=== PATIENT | female | born 1985 | race Caucasian/White ===

== ENCOUNTER → 2018-04-13 08:19 | Outpatient (CLI) | payer OTHER, SELFPAY ==
--- NOTE | 2018-04-13 08:23 | DI.MG.S_ITS ---
BILATERAL DIGITAL DIAGNOSTIC MAMMOGRAM 3D/2D WITH AUGMENTATION: 04/13/2018 CLINICAL: New right breast palpable abnormality. Family history of breast cancer. Patient states she had a prior palpable abnormality in the left breast which was previously evaluated at [facility] in [place], [place] on 06/06/2017, where she was told she had breast cysts. The patient states that the area is unchanged from 06/06/2017 on both her own and her provider's exam. Comparison is made to exam dated: 06/06/2017 ultrasound - [facility]. There is heterogenous fibroglandular tissue bilaterally, which limits the sensitivity of mammography. There is a triangular marker overlying the skin of the upper outer right breast at the site of the patient's reported palpable abnormality. There is no underlying mammographic abnormality. There is a triangular marker overlying the skin of the upper outer left breast at the site of the patient indicated prior palpable abnormality which was reportedly previously evaluated at [facility] in [place], [place] on 06/06/2017. Prior ultrasound report by radiologist Dr. Endy Valderrama states that the site of palpable abnormality represented a cluster of simple cysts, accounting for the palpable abnormality. The patient states that the area is unchanged from 06/06/2017 on both her own and her provider's exam. There is underlying fibroglandular tissue on mammographic exam. Bilateral breast implants present, the imaged portions of which appear intact. IMPRESSION: INCOMPLETE: NEEDS ADDITIONAL IMAGING EVALUATION 1) No mammographic abnormality to correlate with the site of the patient's reported new focal palpable abnormality in the upper outer right breast. Targeted diagnostic ultrasound recommended for further evaluation, which will be performed immediately following this exam. 2) Clinical follow-up of the site of previously evaluated palpable abnormality in the left breast is recommended for further evaluation and management. Consider repeat ultrasound imaging if clinically warranted. The patient is advised to monitor the area and to return sooner for reevaluation if she feels anything grow or change in her breasts. This exam was interpreted at Station ID: [id number]. NOTE: For mammograms, a report in lay terms will be sent to the patient. Approximately 15% of breast malignancies will not be visualized mammographically. In the management of a palpable breast mass, a negative mammogram must not discourage biopsy of a clinically suspicious lesion. Electronically Signed By: Zeyad Aguayo M.D. ecl/:04/13/2018 09:53:00 letter sent: Additional Imaging Needed ACR BI-RADS Category 0: Incomplete [id number]
--- NOTE | 2018-04-13 08:23 | DI.US.S_ITS ---
LIMITED ULTRASOUND OF RIGHT BREAST: 04/13/2018 CLINICAL: Palpable right breast lump x 2 weeks. At the time of comparison diagnostic mammography the patient stated there was one palpable breast lump, but identified two lumps at the time of diagnostic ultrasound. Patient states she had a prior palpable abnormality in the left breast which was previously evaluated at [facility] in [place], [place] on 06/06/2017, where she was told she had breast cysts. The patient states that the area is unchanged from 06/06/2017 on both her own and her provider's exam. Comparison is made to exam dated: 04/13/2018 [facility]. Real-time and Doppler ultrasound of the right breast 8-9 o'clock region were performed. Alonso scale images of the real-time examination were reviewed. Targeted ultrasound was performed in the region of the patient's reported focal palpable abnormalities in the right breast at 8 o'clock position 5 cm from the nipple and 9 o'clock 5 cm from the nipple. No underlying breast mass or abnormality is identified. IMPRESSION: NEGATIVE 1) No ultrasound findings to explain patient's reported focal painful palpable abnormalities in the right breast at 8 o'clock position 5 cm from the nipple and 9 o'clock 5 cm from the nipple. Recommend clinical follow-up for further evaluation and management of the patient's reported symptoms. 2) There is no sonographic evidence of malignancy in the imaged right breast. Annual screening mammography beginning at age 40 is recommended, unless earlier high-risk screening is warranted due to individual patient risk factors for the development of breast malignancy. 3) Clinical follow-up of the site of patient's reported previously evaluated palpable abnormality in the left breast is recommended for further evaluation and management. The patient states that the area in the left breast is unchanged from 06/06/2017 on both her own and her provider's exam. The patient is advised to monitor the area and to inform her medical provider for reevaluation if she feels anything grow or change in her breasts. Consider follow-up ultrasound imaging if clinically warranted. This exam was interpreted at Station ID: [id number]. Electronically Signed By: Zeyad Aguayo M.D. ecl/:04/13/2018 10:00:16 letter sent: Clinical Evaluation Ultrasound BI-RADS: 1 Negative
== END ==
DX: N63.10 Unspecified lump in the right breast, unspecified quadrant (principal)
CPT/HCPCS: 76642; 77066; G0279